=== PATIENT | female | born 1980 | race Caucasian/White ===

== ENCOUNTER 2018-12-04 20:06 | Emergency (ER) | payer OTHER ==
[~2018-12-04] VITALS: Ht 162.6 cm; Wt 100.0 kg
[~2018-12-04 20:06] MED LIST: CELE40TA PO; KLON0.5T PO; PERC7.5T12 PO; ULTR50TA PO; VALT1TAB PO
[2018-12-04] MEDS ORDERED: POTA10808 PO (20:10)
[2018-12-04] MEDS ORDERED: PROZ40CA PO (20:10)
[2018-12-04] MEDS ORDERED: LISI10TA2 PO (20:10)
[2018-12-04] MEDS ORDERED: BENA25CA4 PO (20:13)
[2018-12-04] MEDS ORDERED: dexameTHASONE 20 MG/5 ML VIAL (J1100) IV ONE (20:30)
[2018-12-04] MEDS ORDERED: diphenhydrAMINE INJ 50MG/ML VIAL (J1200) IV ONE (20:30)
[2018-12-04] MEDS ORDERED: FAMOTIDINE INJ 20MG/2ML VIAL (S0028) IVP ONE (20:30)
[2018-12-04] MEDS ORDERED: ALBUTEROL SULFATE 2.5 MG/0.5 ML INH NEB SOLN INH ONE (20:45)
[2018-12-04 21:09] LABS: BASO % 0.2 % (0.0-1.0); EOS # 0.1 10^3/uL (0.0-0.50); EOS % 0.8 % (0.0-3.0); HEMATOCRIT 42.1 % (36.0-47.0); HEMOGLOBIN 14.1 g/dl (12.0-15.5); LYMPH # 2.8 10^3/uL (1.5-4.5); LYMPH % 27.4 % (24.0-44.0); MEAN CORPUSCULAR HEMOGLOBIN 33.9 pg (27.0-33.0); MEAN CORPUSCULAR HGB CONC 33.5 g/dl (32.0-36.5); MEAN CORPUSCULAR VOLUME 101.2 fl (80.0-96.0); MONO # 0.4 10^3/uL (0.0-0.8); MONO % 4.2 % (0.0-5.0); NEUTROPHILS # 6.9 10^3/uL (1.8-7.7); NEUTROPHILS % 67.1 % (36.0-66.0); PLATELET COUNT, AUTOMATED 311 10^3/uL (150-450); RED BLOOD COUNT 4.16 10^6/uL (4.00-5.40); WHITE BLOOD COUNT 10.2 10^3/uL (4.0-10.0)
[2018-12-04 22:15] LABS: BLOOD UREA NITROGEN 16 MG/DL (7-18); CALCIUM LEVEL 8.9 MG/DL (8.5-10.1); CARBON DIOXIDE LEVEL 24 MEQ/L (21-32); CHLORIDE LEVEL 109 MEQ/L (98-107); CREATININE FOR GFR 0.82 MG/DL (0.55-1.30); GLOMERULAR FILTRATION RATE > 60.0 (>60); GLUCOSE, FASTING 97 MG/DL (70-100); POTASSIUM SERUM 4.3 MEQ/L (3.5-5.1); SODIUM LEVEL 142 MEQ/L (136-145)
[2018-12-04] MEDS ORDERED: EPINEPHrine INJ 1 MG/ML 1ML AMP IM STA (22:19)
[2018-12-04] MEDS ORDERED: NS 1,000 ML IV ONE (22:30)
[2018-12-05] MEDS ORDERED: diphenhydrAMINE INJ 50MG/ML VIAL (J1200) IV STA (00:23)
[2018-12-05] MEDS ORDERED: GABAPENTIN 300 MG CAP PO ONE (00:30)
[2018-12-05] MEDS ORDERED: PRED20TA PO (02:26)
[2018-12-05 02:36] VITALS: BP 145/89
--- NOTE | 2018-12-05 02:45 | REP ---
Clinical: Cough and dyspnea . Comparison: 05/29/2012 . Findings: The mediastinum and cardiac silhouette are stable and within normal limits for portable technique. The lung chiu are clear without acute consolidation, effusion, or pneumothorax. Skeletal structures are intact. Impression: No acute cardiopulmonary process appreciated. Electronically Signed by Tacos Vann MD 12/05/2018 02:37 A
[2018-12-06 14:40] LABS: ANTINUCLEAR ANTIBODIES DIRECT Negative (Negative)
== END 2018-12-05 02:45 | disposition home or self-care (01) ==
LOC: M ED 20:06
DX: L50.1 Idiopathic urticaria (principal); I10 Essential (primary) hypertension; F41.9 Anxiety disorder, unspecified; E28.2 Polycystic ovarian syndrome; F32.9 Major depressive disorder, single episode, unspecified; Z72.0 Tobacco use; Z79.899 Other long term (current) drug therapy; Z88.5 Allergy status to narcotic agent
CPT/HCPCS: 71045; 80048; 85025; 86038; 86140; 93041; 94640; 94760; 96361; 96372; 96374; 96375; 96376; 99285; J1100; J1200

== ENCOUNTER 2020-02-21 11:22 | Observation (INO) | payer OTHER ==
[~2020-02-21] VITALS: Ht 162.6 cm; Wt 104.8 kg
[~2020-02-21 11:22] MED LIST changes: +BENA25CA4 PO; +LISI10TA15 PO; +POTA10808 PO; +PRED20TA PO; +PROZ40CA PO
[2020-02-21] MEDS ORDERED: LOSA25TA14 PO (11:34)
[2020-02-21] MEDS ORDERED: AMPH1CAP16 PO (11:34)
[2020-02-21] MEDS ORDERED: ESTR1DIS TOP (11:34)
[2020-02-21] MEDS ORDERED: MORPHINE 4 MG/ML 1ML VIAL/SYRINGE (J2270) IV ONE (12:30)
[2020-02-21] MEDS ORDERED: ONDANSETRON 4MG/2ML VIAL IV ONE (12:30)
[2020-02-21] MEDS ORDERED: NS 1,000 ML IV ONE ×2 (12:30→15:30)
[2020-02-21 12:38] LABS: BASO % 0.4 % (0.0-1.0); EOS % 0.1 % (0.0-3.0); HEMATOCRIT 46.8 % (36.0-47.0); HEMOGLOBIN 15.6 g/dl (12.0-15.5); LYMPH # 1.8 10^3/uL (1.5-5.0); LYMPH % 16.3 % (24.0-44.0); MEAN CORPUSCULAR HEMOGLOBIN 33.1 pg (27.0-33.0); MEAN CORPUSCULAR HGB CONC 33.3 g/dl (32.0-36.5); MEAN CORPUSCULAR VOLUME 99.2 fl (80.0-96.0); MONO # 0.4 10^3/uL (0.0-0.8); MONO % 3.7 % (0.0-5.0); NEUTROPHILS # 8.9 10^3/uL (1.5-8.5); NEUTROPHILS % 79.1 % (36.0-66.0); PLATELET COUNT, AUTOMATED 328 10^3/uL (150-450); RED BLOOD COUNT 4.72 10^6/uL (4.00-5.40); WHITE BLOOD COUNT 11.3 10^3/uL (4.0-10.0)
[2020-02-21 12:41] LABS: INR 0.98; PROTHROMBIN TIME 13.2 SECONDS (11.8-14.0)
[2020-02-21 12:42] LABS: PARTIAL THROMBOPLASTIN TIME 28.1 SECONDS (25.0-38.4)
[2020-02-21 13:14] LABS: BLOOD UREA NITROGEN 11 MG/DL (7-18); CALCIUM LEVEL 9.5 MG/DL (8.5-10.1); CARBON DIOXIDE LEVEL 19 MEQ/L (21-32); CHLORIDE LEVEL 101 MEQ/L (98-107); CK-MB VALUE MASS 5.2 NG/ML (<3.6); CPK CREATINE PHOSPHOKINASE 188 U/L (26-192); CREATININE FOR GFR 0.78 MG/DL (0.55-1.30); GLOMERULAR FILTRATION RATE > 60.0 (>60); GLUCOSE, FASTING 64 MG/DL (70-100); MAGNESIUM LEVEL 1.7 MG/DL (1.8-2.4); MB/CK RELATIVE INDEX 2.77 (< OR =4); POTASSIUM SERUM 3.7 MEQ/L (3.5-5.1); SODIUM LEVEL 135 MEQ/L (136-145); THYROID STIMULATING HORMONE 0.204 uIU/ML (0.358-3.740); TROPONIN I < 0.02 NG/ML (< 0.10)
[2020-02-21] MEDS ORDERED: ISOVUE-370 76% 100ML VIAL As Ordered ONE (13:28)
[2020-02-21] MEDS ORDERED: KETOROLAC 30 MG/ML 1ML VIAL IV ONE (15:30)
[2020-02-21] MEDS ORDERED: DICYCLOMINE INJ 20MG/2ML (J0500) IM ONE (15:30)
[2020-02-21] MEDS ORDERED: METOCLOPRAMIDE INJ 10MG/2ML VIAL (J2765 PER 1) IV ONE (17:30)
[2020-02-21] MEDS ORDERED: CLON0.5T2 PO (18:31)
--- NOTE | 2020-02-21 20:14 | HPEPDOC ---
[facility] Medical History & Physical Date of Admission Feb 21, 2020 Date of Service: Feb 21, 2020 Attending Physician: DEBBI NAVARRO MD History and Physical CHIEF COMPLAINT: Syncope HISTORY OF PRESENT ILLNESS: 39 yo F with a hx of HTN, anxiety, ADHD, presented to the ED after an episode of syncope this morning, after vomiting. She states that she collapsed for ~30 seconds, and was woken up by her who lifted her legs above her heart. She denies having chest pain, palpitation, SOB. She denies a hx of seizures or diabetes. Follows keto diet, eats 1300 cals per day. Did not eat much night before. Was camping, had some hot dogs. She also reports LUQ abdominal pain, onset after vomitus. Improved after toradol in the ED. Denies blood in vomit or blood in stool. She also describes prior cardiac workup 2 years ago at an OSH, due to a hx of palpitations. She reports having a 24 hour holter monitor but no echocardiogram. She does not endorse palpitations prior to the ED visit. In the ED, patient was not hypotensive. Afebrile. Mild WBC elevation. BG wnl. EKG NSR. Mildly tachycardic. CTA/PE showed no PE. CT abdomen unremarkable. Received 2L NS bolus. PAST MEDICAL HISTORY: 1. HTN. 2. anxiety. 3. ADHD. PAST SURGICAL HISTORY: 1. lap band, and removal 2. hysteroctomy. SOCIAL HISTORY: former smoker, quit 2 years ago occasional etoh use FAMILY HISTORY: no cardiac hx in first deg relatives. grandmother sudden due to arrhythmia ALLERGIES: Please see below. REVIEW OF SYSTEMS: CONSTITUTIONAL: na HEENT: na. CARDIOVASCULAR: denies palpitations, denies CP, . RESPIRATORY: none. GASTROINTESTINAL: LUQ abdominal pain, sharp on presentation, dull after toradol. GENITOURINARY: na. SKIN: na. MUSCULOSKELETAL: na. NEUROLOGICAL: na. PSYCHIATRIC: na. ENDOCRINE: na. HEMATOLOGIC/LYMPHATIC: na. HOME MEDICATIONS: Please see below. PHYSICAL EXAMINATION: VITAL SIGNS: please see below GENERAL APPEARANCE: NAD. HEENT: PERRLA. CARDIOVASCULAR: RRR, normal S1, S2. LUNGS: CTAB. ABDOMEN: sharp pain to palpation in the LUQ. No masses palpated. BS+. MUSCULOSKELETAL: no joint deformity. EXTREMITIES: no edema. NEUROLOGICAL: no focal neuro deficits, AAO x 3. PSYCHIATRIC: calm, cooperaive. LABORATORY DATA: See below. IMAGING: CTAPE - no PE identified. CT Abdo no acute findings. MICROBIOLOGY: Please see below. ASSESSMENT: 39 yo F with a hx of HTN, anxiety, ADHD, admitted for observation for an episode of syncope, and ongoing LUQ following an episode of vomiting this morning. PLAN: 1. Syncope: likely 2/2 reduced PO intake. CBC, CMP. S/p 2L NS bolus. C/w NS 125 cc/hr. EKG NSR. Negative orthostats. Check echo given hx of palpitations. PT eval. 2. LUQ pain: likely 2/2 gastritis. Bentyl. PPI. GI cocktail. Check lipase, amylase. 3. HTN: home dose losartan 25 mg po. Hold for now. 4. anxiety: klonopin 0.5 mg daily prn - has not taken for 2 weeks, hold given episode of syncope Dispo: DC home once medically stable. Vital Signs Vital Signs Date Time Temp Pulse Resp B/P (MAP) Pulse Ox O2 Delivery O2 Flow Rate FiO2 02/21/20 18:00 66 18 130/66 (87) 98 Room Air 02/21/20 11:23 98.7 Laboratory Data Labs 24H Laboratory Tests 2 02/21/20 11:35: Immature Granulocyte % (Auto) 0.4, Neutrophils (%) (Auto) 79.1H, Lymphocytes (%) (Auto) 16.3L, Monocytes (%) (Auto) 3.7, Eosinophils (%) (Auto) 0.1, Basophils (%) (Auto) 0.4, Neutrophils # (Auto) 8.9H, Lymphocytes # (Auto) 1.8, Monocytes # (Auto) 0.4, Eosinophils # (Auto) 0.0, Basophils # (Auto) 0.0, Nucleated Red Blood Cells % (auto) 0.0, Prothrombin Time 13.2, Prothromb Time International Ratio 0.98, Activated Partial Thromboplast Time 28.1, Anion Gap 15, Glomerular Filtration Rate > 60.0, Calcium Level 9.5, Magnesium Level 1.7L, Total Creatine Kinase 188, Creatine Kinase MB 5.2H, Creatine Kinase MB Relative Index 2.77, Troponin I < 0.02, Thyroid Stimulating Hormone (TSH) 0.204L CBC/BMP Laboratory Tests 02/21/20 11:35 Home Medications Scheduled Dextroamphetamine/Amphetamine (Dextroamp-Amphet ER 20 mg Cap) 20 Mg Cap.er.24h, 20 MG PO DAILY Estradiol (Estradiol) 0.1 Mg/24 Hr Patch.tdsw, 1 PATCH TOP 2XW APPLY TO ARM ON SAT, Losartan Potassium (Losartan Potassium) 25 Mg Tablet, 25 MG PO DAILY Scheduled PRN Clonazepam (Clonazepam) 0.5 Mg Tablet, 0.5 MG PO DAILY PRN for ANXIETY Allergies Coded Allergies: codeine (Verified Allergy, Severe, SOB AND CHEST PAIN, 12/04/18) A-FIB/CHADSVASC A-FIB History Current/History of A-Fib/PAF?: No Current PO Anticoag Therapy: No DEBBI NAVARRO MD Feb 21, 2020 20:14
[2020-02-21] MEDS ORDERED: ACETAMINOPHEN TAB 650MG DOSE (2X325MG) PO PRN (20:15)
[2020-02-21] MEDS: MAG SULF 1GM/100ML (MAG RUN) 1 GM in IV 1 EA IV SCH ×2 (21:19→21:30)
[2020-02-21] MEDS: NS 1,000 ML IV SCH (21:20)
[2020-02-21 22:30] VITALS: BP 137/67
[2020-02-21] MEDS: DOCUSATE SODIUM 100 MG CAP PO SCH (23:03)
[2020-02-22 06:00] VITALS: BP 120/59
[2020-02-22 07:29] LABS: BASO % 0.5 % (0.0-1.0); EOS # 0.1 10^3/uL (0.0-0.5); EOS % 1.9 % (0.0-3.0); HEMATOCRIT 43.4 % (36.0-47.0); LYMPH # 1.8 10^3/uL (1.5-5.0); LYMPH % 24.5 % (24.0-44.0); MEAN CORPUSCULAR HEMOGLOBIN 32.1 pg (27.0-33.0); MEAN CORPUSCULAR HGB CONC 32.3 g/dl (32.0-36.5); MEAN CORPUSCULAR VOLUME 99.5 fl (80.0-96.0); MONO # 0.6 10^3/uL (0.0-0.8); MONO % 8.6 % (0.0-5.0); NEUTROPHILS # 4.8 10^3/uL (1.5-8.5); NEUTROPHILS % 64.2 % (36.0-66.0); PLATELET COUNT, AUTOMATED 272 10^3/uL (150-450); RED BLOOD COUNT 4.36 10^6/uL (4.00-5.40); WHITE BLOOD COUNT 7.4 10^3/uL (4.0-10.0)
[2020-02-22 07:56] LABS: ALBUMIN 3.7 GM/DL (3.2-5.2); ALT/SGPT 58 U/L (12-78); AMYLASE 27 U/L (25-115); BILIRUBIN,TOTAL 0.6 MG/DL (0.2-1.0); BLOOD UREA NITROGEN 9 MG/DL (7-18); CALCIUM LEVEL 8.6 MG/DL (8.5-10.1); CARBON DIOXIDE LEVEL 19 MEQ/L (21-32); CHLORIDE LEVEL 110 MEQ/L (98-107); CREATININE FOR GFR 0.64 MG/DL (0.55-1.30); GLOMERULAR FILTRATION RATE > 60.0 (>60); GLUCOSE, FASTING 76 MG/DL (70-100); LIPASE 111 U/L (73-393); MAGNESIUM LEVEL 2.2 MG/DL (1.8-2.4); POTASSIUM SERUM 4.1 MEQ/L (3.5-5.1); SODIUM LEVEL 138 MEQ/L (136-145); TOTAL PROTEIN 6.4 GM/DL (6.4-8.2)
[2020-02-22] MEDS: DOCUSATE SODIUM 100 MG CAP PO SCH (08:41)
[2020-02-22] MEDS ORDERED: METOCLOPRAMIDE INJ 10MG/2ML VIAL (J2765 PER 1) IV PRN (09:00)
[2020-02-22] MEDS ORDERED: ENOXAPARIN 40MG/0.4ML SYRINGE (J1650 PER 10MG) SC SCH (09:00)
[2020-02-22] MEDS: NS 1,000 ML IV SCH (09:55)
[2020-02-22 11:15] VITALS: BP 145/86
[2020-02-22 11:18] VITALS: BP 130/85
[2020-02-22 11:21] VITALS: BP 162/100
--- NOTE | 2020-02-22 14:36 | DS.PDOC ---
Discharge Summary General Date of Admission Feb 21, 2020 at 11:23 Date of Discharge 02/22/20 Primary Care Physician: A Discharge Summary CHIEF COMPLAINT: Syncope Final Diagnosis : Syncope HISTORY OF PRESENT ILLNESS: 39 yo F with a hx of HTN, anxiety, ADHD, presented to the ED after an episode of syncope this morning, after vomiting. She states that she collapsed for ~30 seconds, and was woken up by her who lifted her legs above her heart. She denies having chest pain, palpitation, SOB. She denies a hx of seizures or diabetes. Follows keto diet, eats 1300 cals per day. Did not eat much night before. Was camping, had some hot dogs. She also reports LUQ abdominal pain, onset after vomitus. Improved after toradol in the ED. Denies blood in vomit or blood in stool. Her abd pain has completely resolved and she tolerated diet as well. CTA abd pelvis was doen which loks normal to me but no official read omid. Orthostatic signs were done which were negative . Tele/EKG no over night events . She also describes prior cardiac workup 2 years ago at an OSH, due to a hx of palpitations. She reports having a 24 hour holter monitor which was normal as per her but no echocardiogram. CTA/PE showed no PE. CT abdomen unremarkable. She needs an outpatinet cardiac work up, including ECHO , event monitor if she has more similar epsodes. She wants to go home is medically cleared for DC. GENERAL APPEARANCE: NAD. HEENT: PERRLA. CARDIOVASCULAR: RRR, normal S1, S2. LUNGS: CTAB. ABDOMEN: sharp pain to palpation in the LUQ. No masses palpated. BS+. MUSCULOSKELETAL: no joint deformity. EXTREMITIES: no edema. NEUROLOGICAL: no focal neuro deficits, AAO x 3. PSYCHIATRIC: calm, cooperaive. LABORATORY DATA: See below. IMAGING: CTAPE - no PE identified. CT Abdo no acute findings. Medications on DC: All meds have been continued F/U appiontments : F/u with PCP in 1 week and she will require cardio referral from the PCP Diet: Regular Condition on discharge : Medically optimized for DC Discharge Disposition : Home Total time spend on this discharge including coordination of care, review of chart , documentation and actual patient contact is 30 minutes. Vital Signs/I&Os Vital Signs Date Time Temp Pulse Resp B/P (MAP) Pulse Ox O2 Delivery O2 Flow Rate FiO2 02/22/20 11:21 74 162/100 (120) 02/22/20 06:00 98.0 18 98 Room Air I&O- Last 24 Hours up to 6 AM 02/22/20 06:00 Intake Total 4580 ml Output Total 1200 ml Balance 3380 ml Laboratory Data Labs 24H Laboratory Tests 2 02/22/20 07:05: Immature Granulocyte % (Auto) 0.3, Neutrophils (%) (Auto) 64.2, Lymphocytes (%) (Auto) 24.5, Monocytes (%) (Auto) 8.6H, Eosinophils (%) (Auto) 1.9, Basophils (%) (Auto) 0.5, Neutrophils # (Auto) 4.8, Lymphocytes # (Auto) 1.8, Monocytes # (Auto) 0.6, Eosinophils # (Auto) 0.1, Basophils # (Auto) 0.0, Nucleated Red Blood Cells % (auto) 0.0, Anion Gap 9, Glomerular Filtration Rate > 60.0, Calcium Level 8.6, Magnesium Level 2.2, Total Bilirubin 0.6, Aspartate Amino Transf (AST/SGOT) 58H, Alanine Aminotransferase (ALT/SGPT) 58, Alkaline Phosphatase 71, Total Protein 6.4, Albumin 3.7, Albumin/Globulin Ratio 1.4, Amylase Level 27, Lipase 111 CBC/BMP Laboratory Tests 02/22/20 07:05 Discharge Medications Scheduled Dextroamphetamine/Amphetamine (Dextroamp-Amphet ER 20 mg Cap) 20 Mg Cap.er.24h, 20 MG PO DAILY, (Reported) Estradiol (Estradiol) 0.1 Mg/24 Hr Patch.tdsw, 1 PATCH TOP 2XW, (Reported) APPLY TO ARM ON SAT, Losartan Potassium (Losartan Potassium) 25 Mg Tablet, 25 MG PO DAILY, (Reported) Scheduled PRN Clonazepam (Clonazepam) 0.5 Mg Tablet, 0.5 MG PO DAILY PRN for ANXIETY, (Reported) Allergies Coded Allergies: codeine (Verified Allergy, Severe, SOB AND CHEST PAIN, 12/04/18) BLADIMIR VAZQUEZ MD Feb 22, 2020 14:36
--- NOTE | 2020-03-09 12:52 | ECGEPIP ---
[facility] - ED Test Date: 2020-02-21 Pat Name: ALFREDA PIERRE Department: Room: - Gender: Female Slat Twister: : 1980 Requested By: MARCIO GAONA Order Number: [id number] Reading MD: Benja Agudelo Measurements Intervals [place] Rate: 79 P: 62 DE: 169 QRS: 28 QRSD: 92 T: 54 QT: 364 QTc: 418 Interpretive Statements SINUS RHYTHM EARLY REPOLARIZATION SEE SCANNED DOWNTIME REPORT
--- NOTE | 2020-03-25 14:45 | REP ---
CT ABDOMEN AND PELVIS WITH IV CONTRAST HISTORY: Syncope. Severe left upper quadrant pain. CT CONTRAST DOSE: 100 mL of intravenous Isovue-370. CT FINDINGS: Digital preliminary generator mechanic radiograph non-contributory report. There are clips in the right upper quadrant post cholecystectomy. There is moderate diffuse fatty infiltration of the liver. No focal liver lesion is appreciated. The spleen is homogeneous in texture and normal in size. No abnormality is noted in the pancreas. Normal adrenal glands are observed bilaterally. The kidneys enhance symmetrically and appear morphologically intact. There is some mild cortical scarring and thinning in the lower pole of the left kidney. A 4-mm intrarenal calculus is seen in the lower pole of the left kidney. Normal caliber aorta. No retroperitoneal mass or adenopathy is seen. Normal appendix is seen in the right lower quadrant. Small and large intestinal bowel loops are unremarkable. The uterus is surgically absent. MTDD
--- NOTE | 2020-03-25 14:46 | REP ---
CT PULMONARY ANGIOGRAM WITH INTRAVENOUS (IV) CONTRAST HISTORY: Syncope, shortness of breath, rule out pulmonary embolus. CT CONTRAST DOSE: 100 mL of intravenous Isovue-370. CT FINDINGS: Digital preliminary fish checker view of the chest is unremarkable. There is good opacification in the pulmonary arterial tree. There is no filling defect or vessel cutoff seen to suggest pulmonary embolus. Thoracic aorta enhances normally and is normal in caliber and course. No dissection or aneurysm is seen. No pleural or pericardial effusion is observed. There is moderate diffuse fatty infiltration of the liver. No adrenal abnormality is observed. The visualized upper abdominal structures are otherwise unremarkable. No hilar or mediastinal mass or adenopathy is seen. The lung chiu are free of infiltrate. No pulmonary mass or significant pulmonary nodule is appreciated. Bone window settings show no bony destructive lesion. IMPRESSION: Moderate diffuse fatty infiltration of the liver. No CT evidence of pulmonary embolus. Otherwise negative. MTDD
--- NOTE | 2020-04-08 14:59 | ECHO ---
DATE OF PROCEDURE: 02/02/2020 Age: 39 Gender: Female Height: 160 cm Weight: 105 kg REFERRING PHYSICIAN: Yogesh Montejo MD INDICATION: Syncope. MEASUREMENTS: 2D Measurements: Interventricular septum 0.71 cm Posterior wall 0.76 cm Left ventricle diastole 4.6 cm Left atrium 3.7 cm Aortic root 3.2 cm Aortic annulus 2.3 cm Proximal ascending aorta 2.8 cm Inferior vena cava 1.2 cm with normal respiratory variation Doppler Measurements: Trace aortic regurgitation No aortic stenosis Aortic valve velocity 129 cm/s LVOT velocity 93.3 cm/s LVOT VTI 23.1 cm Trace mitral regurgitation Mitral E velocity 109 cm/s Mitral A velocity 65.1 cm/s Mitral deceleration time 134 msec Trace tricuspid regurgitation No pulmonic regurgitation MITRAL ANNULAR TISSUE DOPPLER E prime septal 8.8 cm/s, E prime lateral 13.3 cm/s DESCRIPTION: Rhythm was sinus rhythm and sinus bradycardia. Image quality was good. No pericardial effusion. This was a 2D, M-mode, color flow Doppler, and pulsed wave Doppler examination including mitral annular tissue Doppler. CONCLUSIONS: * Very mild focal thickening along the free margins of the 3-cuspid aortic valve. Trace aortic regurgitation. * Normal left ventricle internal dimensions and wall thickness. Normal regional LV wall motion and wall thickening. Normal LV systolic function. LVEF of 65% by visual estimate. Normal LV diastolic function. * Otherwise normal echocardiogram Doppler findings. MTDD
== END 2020-02-22 15:30 | disposition home or self-care (01) ==
LOC: M ED 11:22 → M ED INP 11:23 → ENRESERV 21:11 → M MS5PR 22:58
PROVIDERS: ADMIT Family Medicine; ATTEND Internal Medicine
DX: R55 Syncope and collapse (principal); I10 Essential (primary) hypertension; F90.9 Attention-deficit hyperactivity disorder, unspecified type; F41.9 Anxiety disorder, unspecified; Z79.899 Other long term (current) drug therapy; R10.32 Left lower quadrant pain; Z88.5 Allergy status to narcotic agent; Z87.891 Personal history of nicotine dependence
CPT/HCPCS: 36415; 71275; 74177; 80048; 80053; 82150; 82550; 82553; 83690; 83735; 84443; 84484; 85025; 85610; 85730; 93005; 93041; 93306; 94760; 96361; 96372; 96374; 96375; 96376; 99285; J0500; J1650; J1885; J2270; J2405; J2765; J3475; Q9967

== ENCOUNTER 2020-06-26 02:49 | Emergency (ER) | payer OTHER ==
[~2020-06-26] VITALS: Ht 160 cm; Wt 104.5 kg
[~2020-06-26 02:49] MED LIST changes: +AMPH1CAP16 PO; +CLON0.5T2 PO; +ESTR1DIS TOP; +LOSA25TA14 PO
[2020-06-26] MEDS ORDERED: ONDANSETRON 4MG/2ML VIAL IV ONE (03:30)
[2020-06-26] MEDS ORDERED: KETOROLAC 30 MG/ML 1ML VIAL IV ONE (03:30)
[2020-06-26] MEDS ORDERED: NS 1,000 ML IV ONE (03:30)
[2020-06-26 04:00] LABS: BASO % 0.5 % (0.0-1.0); EOS # 0.3 10^3/uL (0.0-0.5); EOS % 3.6 % (0.0-3.0); HEMATOCRIT 39.9 % (36.0-47.0); HEMOGLOBIN 12.9 g/dl (12.0-15.5); LYMPH # 3.9 10^3/uL (1.5-5.0); LYMPH % 49.2 % (24.0-44.0); MEAN CORPUSCULAR HEMOGLOBIN 31.4 pg (27.0-33.0); MEAN CORPUSCULAR HGB CONC 32.3 g/dl (32.0-36.5); MEAN CORPUSCULAR VOLUME 97.1 fl (80.0-96.0); MONO # 0.4 10^3/uL (0.0-0.8); MONO % 5.5 % (0.0-5.0); NEUTROPHILS # 3.3 10^3/uL (1.5-8.5); NEUTROPHILS % 40.9 % (36.0-66.0); PLATELET COUNT, AUTOMATED 297 10^3/uL (150-450); RED BLOOD COUNT 4.11 10^6/uL (4.00-5.40)
[2020-06-26 04:28] LABS: HCG, SERUM QUALITATIVE NEGATIVE (NEGATIVE)
[2020-06-26 04:29] LABS: ALBUMIN 3.2 GM/DL (3.2-5.2); ALT/SGPT 23 U/L (12-78); BILIRUBIN,DIRECT < 0.1 MG/DL (0.0-0.2); BILIRUBIN,TOTAL 0.2 MG/DL (0.2-1.0); BLOOD UREA NITROGEN 11 MG/DL (7-18); CALCIUM LEVEL 8.3 MG/DL (8.5-10.1); CARBON DIOXIDE LEVEL 28 MEQ/L (21-32); CHLORIDE LEVEL 108 MEQ/L (98-107); CREATININE FOR GFR 0.76 MG/DL (0.55-1.30); GLOMERULAR FILTRATION RATE > 60.0 (>60); GLUCOSE, FASTING 79 MG/DL (70-100); LIPASE 212 U/L (73-393); POTASSIUM SERUM 4.5 MEQ/L (3.5-5.1); SODIUM LEVEL 142 MEQ/L (136-145); TOTAL PROTEIN 6.1 GM/DL (6.4-8.2)
[2020-06-26] MEDS ORDERED: ISOVUE-370 76% 100ML VIAL As Ordered ONE (04:39)
[2020-06-26] MEDS: MORPHINE 4 MG/ML 1ML VIAL/SYRINGE (J2270) IV PRN ×2 (04:49→05:23)
[2020-06-26] MEDS ORDERED: METAL LOCK LOOP XX ONE (06:23)
--- NOTE | 2020-06-26 06:24 | REPVR ---
PROCEDURE INFORMATION: Exam: CT Abdomen And Pelvis With Contrast Exam date and time: 06/26/2020 5:35 AM Age: 40 years old Clinical indication: Abdominal pain; Localized; Right; Additional info: Right sided abd TECHNIQUE: Imaging protocol: Computed tomography of the abdomen and pelvis with intravenous contrast. Radiation optimization: All CT scans at this facility use at least one of these dose optimization techniques: automated exposure control; mA and/or kV adjustment per patient size (includes targeted exams where dose is matched to clinical indication); or iterative reconstruction. Contrast material: ISOVUE 370; Contrast volume: 100 ml; Contrast route: INTRAVENOUS (IV); COMPARISON: CT ABD PELVIS WITH CONTRAST 02/21/2020 1:48 PM FINDINGS: Lungs: Linear atelectasis or scarring in the lingula. Liver: Hepatomegaly and steatosis. Gallbladder and bile ducts: Status post cholecystectomy. Pancreas: Normal. No ductal dilation. Spleen: Normal. No splenomegaly. Adrenal glands: Normal. No mass. Kidneys and ureters: Punctate nonobstructing left renal calculus. No hydronephrosis. Focal scarring in the inferior pole the left kidney. Stomach and bowel: Status post partial gastrectomy. Appendix: No evidence of appendicitis. Intraperitoneal space: Unremarkable. No free air. No significant fluid collection. Vasculature: Unremarkable. No abdominal aortic aneurysm. Lymph nodes: Unremarkable. No enlarged lymph nodes. Urinary bladder: Distended urinary bladder. Reproductive: Status post hysterectomy. Bones/joints: Multilevel degenerative disease and facet hypertrophy of the lumbar spine. Soft tissues: Small fat containing umbilical hernia. IMPRESSION: Punctate nonobstructing left renal calculus. No hydronephrosis. Hepatomegaly and steatosis. No bowel obstruction. Normal appendix. Electronically signed by: Marcos Canada On 06/26/2020 06:24:53 AM
[2020-06-26 06:30] VITALS: BP 118/69
[2020-06-26] MEDS ORDERED: PERC5TAB12 PO (06:41)
== END 2020-06-26 07:09 | disposition home or self-care (01) ==
LOC: M ED 02:49
DX: R10.9 Unspecified abdominal pain (principal); F41.1 Generalized anxiety disorder; Z87.442 Personal history of urinary calculi; Z79.899 Other long term (current) drug therapy; Z88.5 Allergy status to narcotic agent
CPT/HCPCS: 36415; 74177; 80048; 80076; 81001; 83605; 83690; 84703; 85025; 93041; 96361; 96374; 96375; 96376; 99284; J1885; J2270; J2405; Q9967; U0003

== ENCOUNTER 2020-12-22 07:10 | Observation (INO) | payer OTHER ==
[~2020-12-22] VITALS: Ht 162.6 cm; Wt 110.2 kg
[~2020-12-22 07:10] MED LIST changes: +PERC5TAB12 PO
[2020-12-22] MEDS ORDERED: FLUO40CA PO (07:21)
[2020-12-22] MEDS ORDERED: VALA1TAB5 PO (07:21)
[2020-12-22] MEDS ORDERED: SUMA50TA2 PO (07:21)
[2020-12-22] MEDS ORDERED: CLON0.5T2 PO (07:21)
[2020-12-22 08:14] LABS: BASO % 0.2 % (0.0-1.0); EOS % 0.4 % (0.0-3.0); HEMATOCRIT 42.7 % (36.0-47.0); HEMOGLOBIN 13.9 g/dl (12.0-15.5); LYMPH # 1.3 10^3/uL (1.5-5.0); LYMPH % 14.3 % (24.0-44.0); MEAN CORPUSCULAR HEMOGLOBIN 32.6 pg (27.0-33.0); MEAN CORPUSCULAR HGB CONC 32.6 g/dl (32.0-36.5); MEAN CORPUSCULAR VOLUME 100.2 fl (80.0-96.0); MONO # 0.4 10^3/uL (0.0-0.8); MONO % 3.9 % (2.0-8.0); NEUTROPHILS # 7.4 10^3/uL (1.5-8.5); NEUTROPHILS % 80.9 % (36.0-66.0); PLATELET COUNT, AUTOMATED 323 10^3/uL (150-450); RED BLOOD COUNT 4.26 10^6/uL (4.00-5.40); WHITE BLOOD COUNT 9.1 10^3/uL (4.0-10.0)
[2020-12-22] MEDS ORDERED: KETOROLAC 30 MG/ML 1ML VIAL IV ONE (08:15)
[2020-12-22 08:20] LABS: BLOOD UREA NITROGEN 12 MG/DL (7-18); CALCIUM LEVEL 9.1 MG/DL (8.5-10.1); CARBON DIOXIDE LEVEL 26 MEQ/L (21-32); CHLORIDE LEVEL 106 MEQ/L (98-107); CPK CREATINE PHOSPHOKINASE 102 U/L (26-192); CREATININE FOR GFR 0.64 MG/DL (0.55-1.30); GLOMERULAR FILTRATION RATE > 60.0 (>60); GLUCOSE, FASTING 109 MG/DL (70-100); POTASSIUM SERUM 4.1 MEQ/L (3.5-5.1); SODIUM LEVEL 138 MEQ/L (136-145)
--- NOTE | 2020-12-22 08:22 | ECGEPIP ---
[facility] - ED Test Date: 2020-12-22 Pat Name: ALFREDA PIERRE Department: Room: - Gender: Female Senior Medical Transcriptionist: gracie : 1980 Requested By: Benja Chandler Order Number: [id number] Reading MD: Benja Agudelo Measurements Intervals [place] Rate: 61 P: 32 GA: 184 QRS: -6 QRSD: 80 T: 6 QT: 388 QTc: 390 Interpretive Statements Normal sinus rhythm Minimal voltage criteria for LVH, may be normal variant ( R in aVL ) BENIGN EARLY REPOLARIZATION SIMILAR TO 02/21/20 Electronically Signed on 12-22-2020 8:21:35 EDT by Benja Agudelo
--- NOTE | 2020-12-22 08:30 | REP ---
INDICATION: seizure. COMPARISON: None. TECHNIQUE: Helical scanning is acquired. 5 mm axial images were reformatted. Coronal MPR images were generated. FINDINGS: Bone window settings demonstrate an intact bony calvarium. There is no evidence of skull fracture or incidental bony calvarial lesion. The visualized paranasal sinuses appear clear. No intraorbital abnormality is seen. On soft tissue window setting images; the lateral, third, and fourth ventricles are normal in size and position. Gonzalez-white differentiation pattern is normal above and below the tentorium. There are is no evidence of intracranial hemorrhage. No mass, edema, infarction, or midline shift is seen. No extra-axial fluid collection is appreciated. IMPRESSION: Negative noncontrast head CT. <Electronically signed by Rafa Boudreaux > 12/22/20 0033
[2020-12-22] MEDS ORDERED: ZONISAMIDE 50 MG CAP (ZONEGRAN) PO ONE (09:25)
[2020-12-22 09:51] LABS: PROLACTIN 5.7 NG/ML
[2020-12-22] MEDS ORDERED: METOCLOPRAMIDE INJ 10MG/2ML VIAL (J2765 PER 1) IV ONE (10:35)
[2020-12-22] MEDS ORDERED: LORazepam 2 MG/ML VIAL IV STA (11:54)
[2020-12-22] MEDS ORDERED: ZONISAMIDE 100 MG CAP (ZONEGRAN) PO ONE (11:55)
[2020-12-22] MEDS ORDERED: AMPH1CAP15 PO (12:33)
[2020-12-22 13:00] LABS: RSV AMPLIFICATION NEGATIVE (NEGATIVE)
[2020-12-22] MEDS ORDERED: LORazepam 2 MG/ML VIAL IV PRN (13:05)
[2020-12-22] MEDS ORDERED: FIORICET TAB PO PRN (13:05)
[2020-12-22 16:40] VITALS: BP 100/58
[2020-12-22] MEDS: DIVALPROEX 500 MG TAB PO SCH (18:14)
--- NOTE | 2020-12-22 18:26 | HPEPDOC ---
General Date of Admission 12/22/20 Date of Service: Dec 22, 2020 Chief Complaint The patient is a 40-year-old female admitted with a reason for visit of Probable Seizure. Source: Patient, RN/MD History of Present Illness 40-year-old female with history of migraine, anxiety, syncope worked up by cardiology in the past, morbid obesity status post lap band placement and remova l, ADHD presented to the emergency room with 2 episodes of presumed seizures at home. At 4:30 AM was woken up by thrashing movement of the patient in bed there were some frothing in the mouth lasted for about 30 seconds then she had a staring look for a few seconds then was back to normal they went back to sleep. He was again woken up at around 5:15 AM with similar thrashing movement lasted again for 30 seconds. There was no urinary incontinence. Her tongue was protruding out but there was no tongue biting. In the morning she presented to the emergency room with a severe headache which she said was her similar to her migraine attack. She had throbbing headache all over the head 8/10 in intensity. No photophobia or phonophobia no nausea or vomiting. She had a CT scan in the head in the ED which was negative for any acute events she also had an MRI within the past 1 month through her primary care at [place] [facility] which was also negative for any acute findings. While in the ED she had 2 more episodes of jerky movements of hands and legs with some frothing but was able to manage her secretions and there was no drop in oxygen saturation, no rise in pulse rate. The episodes lasted about 30 to 40 seconds without any post external state. there was no tongue biting. There was some minimal urinary incontinence during the fourth episode. ED provider consulted Dr. Sethi from neurology and as per his recommendations she was given zonisamide and was admitted to get evaluated for seizures. On my exam she was sedated she had received Ativan in the ED. all history was taken from ED provider and from chart review. Home Medications Scheduled Dextroamphetamine/Amphetamine (Dextroamp-Amphet ER 15 mg Cap) 15 Mg Cap.er.24h, 15 MG PO BID, (Reported) TAKES AM/NOON Estradiol (Estradiol) 0.1 Mg/24 Hr Patch.tdsw, 1 PATCH TOP 2XW, (Reported) APPLY TO ARM ON SAT, THURS Fluoxetine Hcl (Fluoxetine HCl) 40 Mg Capsule, 40 MG PO DAILY, (Reported) Scheduled PRN Clonazepam (Clonazepam) 0.5 Mg Tablet, 1 TAB PO DAILY PRN for ANXIETY/AGITATION, (Reported) Sumatriptan Succinate (Sumatriptan Succinate) 50 Mg Tablet, 50 MG PO ASDIRECTED PRN for HEADACHE, (Reported) Valacyclovir HCl (Valacyclovir) 1,000 Mg Tablet, 2,000 MG PO BID PRN for COLD SORES, (Reported) Allergies Coded Allergies: codeine (Verified Allergy, Severe, SOB AND CHEST PAIN, 12/04/18) Past Medical History Medical History Morbid obesity BMI of 43.1 Hypertension Anxiety ADHD Migraine HSV infection. Surgical History lap band, and removal hysterectomy. Family History Grandmother sudden due to arrhythmia Social History * Smoker: former Smoker Alcohol: occationally Drugs: denies A-FIB/CHADSVASC A-FIB History Current/History of A-Fib/PAF?: No Review of Systems Constitutional: Denies: Chills, Fever, Night Sweats ENT: Reports: Head Aches Skin: Denies: Rash, Lesions, Breakdown Pulmonary: Denies: Dyspnea, Cough Cardiovascular: Denies: Chest Pain, Palpitations, Orthopnea, Paroxysmal Noc. Dyspnea, Lt Headedness Gastrointestinal: Denies: Nausea, Vomiting, Abdominal Pain, Diarrhea Genitourinary: Reports: Retention; Denies: Dysuria, Frequency, Incontinence Hematologic: Denies: Bruising, Bleeding Excessively Physical Examination General Exam: Positive: Alert, Cooperative, No Acute Distress Eye Exam: Positive: PERRLA, Conjunctiva & lids normal; Negative: Sclera icteric ENT Exam: Positive: Atraumatic, Mucous membr. moist/pink, Pharynx Normal Neck Exam: Positive: Supple; Negative: JVD, thyromegaly Chest Exam: Positive: Clear to auscultation, Normal air movement Heart Exam: Positive: Rate Normal, Regular Rhythm, Normal S1, Normal S2; Negative: Murmurs, Rubs Abdomen Exam: Positive: Normal bowel sounds, Soft; Negative: Tenderness Extremity Exam: Negative: Clubbing, Cyanosis, Edema Vital Signs Vital Signs Date Time Temp Pulse Resp B/P (MAP) Pulse Ox O2 Delivery O2 Flow Rate FiO2 12/22/20 11:53 74 96 12/22/20 11:30 148/82 (104) 12/22/20 09:46 Room Air 12/22/20 09:16 18 12/22/20 07:10 97.5 Laboratory Data Labs 24H Laboratory Tests 2 12/22/20 07:42: Immature Granulocyte % (Auto) 0.3, Neutrophils (%) (Auto) 80.9H, Lymphocytes (%) (Auto) 14.3L, Monocytes (%) (Auto) 3.9, Eosinophils (%) (Auto) 0.4, Basophils (%) (Auto) 0.2, Neutrophils # (Auto) 7.4, Lymphocytes # (Auto) 1.3L, Monocytes # (Auto) 0.4, Eosinophils # (Auto) 0.0, Basophils # (Auto) 0.0, Nucleated Red Blood Cells % (auto) 0.0, Anion Gap 6L, Glomerular Filtration Rate > 60.0, Calcium Level 9.1, Total Creatine Kinase 102, Prolactin 5.7 12/22/20 07:46: POC Glucose (Misc Panel) 113H, POC Sodium (Misc Panel) 139, POC Potassium (Misc Panel) 4.1, POC Chloride (Misc Panel) 102, POC Total CO2 (Misc Panel) 23.0, POC Blood Urea Nitrogen (Misc Panel 12, POC Ionized Calcium (Misc Panel) 5.0, POC Creatinine (Misc Panel) 0.6, POC Hematocrit (Misc Panel) 45.0 CBC/BMP Laboratory Tests 12/22/20 07:42 Assessment/Plan 40-year-old female with history of migraine, anxiety, syncope worked up by cardiology in the past, morbid obesity status post lap band placement and removal, ADHD presented to the emergency room with 2 episodes of presumed seizures at home followed by severe headache which was like her migraine headaches. While in the ED she had 2 more episodes of jerky movements of hands and legs each about 30 seconds with some frothing around the mouth but was able to manage her secretions and there was no drop in oxygen saturation no rise in pulse rate without any post ictal state. There was no tongue biting. ED provider consulted Dr. Sethi from neurology and as per his recommendations she was given zonisamide and was admitted to get evaluated for seizures vs pseudoseizure Seizure versus pseudoseizure Even after 2 episodes at home her prolactin level has been normal there has been no postictal period. Will get EEG Dr. Sethi consulted Initially started on zonisamide as per his direction but then medication was changed to Dr. Sethi to Depakote Ativan as needed for seizure Seizure precautions Anxiety We will continue home meds Plan / VTE VTE Prophylaxis Ordered?: Yes EVERARDO GARZON MD Dec 22, 2020 12:12
[2020-12-22] MEDS ORDERED: DIVALPROEX 500 MG TAB PO SCH (21:00)
[2020-12-22] MEDS ORDERED: ZONISAMIDE 50 MG CAP (ZONEGRAN) PO SCH (21:00)
[2020-12-22 22:00] VITALS: BP 109/55
[2020-12-23 01:41] VITALS: BP 132/78
[2020-12-23 06:00] VITALS: BP 118/78
[2020-12-23] MEDS: DIVALPROEX 500 MG TAB PO SCH (08:57)
[2020-12-23] MEDS ORDERED: FLUoxetine 20 MG CAP PO SCH (09:00)
[2020-12-23] MEDS ORDERED: DEPA1TAB3 PO (11:00)
--- NOTE | 2020-12-23 11:32 | CR ---
CONSULTATION DATE: 12/22/2020 REFERRING PHYSICIAN: Dr. Benja Agudelo REASON FOR CONSULTATION: Seizures. HISTORY OF PRESENT ILLNESS: Delisa Templeton is a 40-year-old woman who was seen in consultation at [facility] after she was admitted with seizures. History was obtained from patient and her who was present in the room. He woke up to the noise of her shaking due to a seizure in her sleep. It lasted for 30 seconds. She was postictal for 10 minutes. She briefly woke up and fell back asleep. He again woke up around 5:30 a.m. and she was having a second seizure lasting for 30 seconds. She was brought to [facility] and had a third seizure at 9 a.m. with generalized shaking, foaming at her mouth and postictal state. She was given zonisamide in the emergency department. She had another seizure around 10 a.m. She was given Ativan 1 mg followed by a higher does of zonisamide. She has not had any seizures since then. The patient bit her tongue in the first three episodes. She was urinary incontinent in fourth episode. She had a passing out spell in January, when she was dieting. She was on a keto diet at that time. She has history of chronic back pain. She has migraines for several years. Migraines occur once or twice a week, frontal, 8/10 in intensity, aching, throbbing in character, lasting all day with nausea, dizziness, blurred vision, photophobia and phonophobia. She denies any neck pain, dysphagia, dysarthria, diplopia, urinary incontinence. PAST MEDICAL HISTORY: 1. Kidney stones. 2. Back surgery. 3. Gastric band for weight loss. 4. Anxiety. 5. Depression. HOME MEDICATIONS: Fluoxetine. ALLERGIES: CODEINE. SOCIAL HISTORY: She denies smoking, alcohol or illicit drugs. FAMILY HISTORY: Unremarkable and noncontributory. REVIEW OF SYSTEMS: All systems were reviewed and found to be noncontributory except as mentioned in history of present illness. PHYSICAL EXAMINATION: VITAL SIGNS: Temperature 98.2, pulse 69, blood pressure 141/85, 96% saturation on room air. HEART: Regular rate and rhythm. LUNGS: Clear to auscultation. ABDOMEN: Soft, nontender, nondistended. EXTREMITIES: No pedal edema. MUSCULOSKELETAL: No abnormalities. SKIN: No rash. NEUROLOGICAL: No signs of meningeal irritation. The patient is awake, alert, oriented to place, person and time. Normal speech, comprehension and repetition. Extraocular muscles are intact. No facial weakness. Tongue and uvula are midline. 5/5 strength in all four extremities. Deep tendon reflexes are 2+ throughout. Normal sensation throughout. Gait is normal. There is no nystagmus, dysmetria or ataxia. DIAGNOSTIC STUDIES: CT scan of head was reviewed and is within normal limits. CBC, metabolic profile were normal. CK was 102. Prolactin level was 5.7 and EKG revealed normal sinus rhythm. ASSESSMENT: 1. Suspected generalized tonic-clonic seizures. 2. Syncopal episode in 2019. 3. Chronic migraines, without aura, not intractable, without status migrainosus. PLAN: 1. EEG. 2. Complete seizure precautions including no driving for six months. 3. Discontinue zonisamide due to history of kidney stones. 4. Depakote extended release 500 mg p.o. b.i.d. The patient already had hysterectomy and Depakote would not carry any risks. 5. Avoid Topamax with history of kidney stones. Keppra can be considered if any side effects with Depakote. 6. Imitrex 50 mg p.o. b.i.d. p.r.n. for migraines. 7. Follow with our office in 1-2 weeks after hospital discharge.
--- NOTE | 2020-12-23 11:40 | IPNPDOC ---
Subjective Date Seen The patient was seen on 12/23/20. Subjective Chief Complaint/HPI No complaints this morning. Objective Physical Examination General Exam: Positive: Alert, Cooperative, No Acute Distress Eye Exam: Positive: PERRLA, Conjunctiva & lids normal; Negative: Sclera icteric ENT Exam: Positive: Atraumatic, Mucous membr. moist/pink, Pharynx Normal Neck Exam: Positive: Supple; Negative: JVD, thyromegaly Chest Exam: Positive: Clear to auscultation, Normal air movement Heart Exam: Positive: Rate Normal, Regular Rhythm, Normal S1, Normal S2; Negative: Murmurs, Rubs Abdomen Exam: Positive: Normal bowel sounds, Soft; Negative: Tenderness Extremity Exam: Negative: Clubbing, Cyanosis, Edema Assessment /Plan Assessment 40-year-old female with history of migraine, anxiety, syncope worked up by cardiology in the past, morbid obesity status post lap band placement and removal, ADHD presented to the emergency room with 2 episodes of presumed seizures at home followed by severe headache which was like her migraine headaches. While in the ED she had 2 more episodes of jerky movements of hands and legs each about 30 seconds with some frothing around the mouth but was able to manage her secretions and there was no drop in oxygen saturation no rise in pulse rate without any post ictal state. There was no tongue biting. ED provider consulted Dr. Sethi from neurology and as per his recommendations she was given zonisamide and was admitted to get evaluated for seizures vs pseudoseizure Generalized tonic clonic Seizure EEG done Follow up with Dr. Sethi Initially started on zonisamide but was changed to Depakote due to history of kidney stones. Seizure precautions, No driving for 6 months, no climbing heights, no swimming alone. Anxiety We will continue home meds ADHD continue adderall. Dispo: Home. Plan/VTE VTE Prophylaxis Ordered?: Yes VS, I&O, 24H, Fishbone Vital Signs/I&O Vital Signs Date Time Temp Pulse Resp B/P (MAP) Pulse Ox O2 Delivery O2 Flow Rate FiO2 12/23/20 08:59 16 12/23/20 06:00 98.1 54 118/78 (91) 97 Room Air I&O- Last 24 Hours up to 6 AM 12/23/20 06:00 Intake Total 720 ml Output Total 1100 ml Balance -380 ml Laboratory Data 24H LABS Laboratory Tests 2 12/22/20 12:02: Coronavirus (COVID-19)(PCR) NEGATIVE, Influenza Type A (RT-PCR) NEGATIVE, Influenza Type B (RT-PCR) NEGATIVE, Respiratory Syncytial Virus (PCR) NEGATIVE EVERARDO GARZON MD Dec 23, 2020 11:40
--- NOTE | 2020-12-24 08:26 | EEG ---
ELECTROENCEPHALOGRAM DATE: 12/23/2020 DIAGNOSIS: Seizure. EEG# [id number] REFERRING PHYSICIAN: Dr. Adeola Santoyo HISTORY: The patient is a 40-year-old woman who was admitted to [facility] due to four seizures, two of which happened during sleep and two in the emergency department. They were described as generalized shaking with foaming at the mouth, loss of consciousness with postictal phase. She is currently on Depakote. TECHNICAL DESCRIPTION: This digital electroencephalogram (EEG) was recorded by 21 scalp, ear, and two electrocardiogram (EKG) electrodes and was reviewed in bipolar and referential montages following reformatting in 10-20 international electrode placement system. INTERPRETATION: Patient was noted to be in awake and drowsy states during this EEG. Resting and awake background rhythm consisted of well-formed posterior dominant rhythm with anterior/posterior gradient comprising of 9 Hz alpha activity measuring 15-40 microvolts in amplitude which was symmetric and reactive to eye opening. Attenuation of posterior dominant rhythm was seen during transition to drowsiness. Stage I and II sleep were reviewed and symmetric bilaterally. Hyperventilation was not performed. Photic stimulation remained unremarkable. EKG revealed normal sinus rhythm. No focal, lateralizing, or epileptiform abnormalities were seen. No relevant clinical activity was noted. CONCLUSION: This EEG in awake, drowsy states, stage I and II sleep is within normal limits.
== END 2020-12-23 14:00 | disposition home or self-care (01) ==
LOC: M ED 07:10 → M ED INP 13:01 → ENRESERV 14:11 → M MSPAV 16:30
PROVIDERS: ADMIT Internal Medicine Nephrology; ATTEND Internal Medicine Nephrology
DX: G40.409 Other generalized epilepsy and epileptic syndromes, not intractable, without status epilepticus (principal); F41.9 Anxiety disorder, unspecified; F90.9 Attention-deficit hyperactivity disorder, unspecified type; G43.909 Migraine, unspecified, not intractable, without status migrainosus; M54.5 Low back pain; E66.9 Obesity, unspecified; Z68.41 Body mass index [BMI] 40.0-44.9, adult; Z98.84 Bariatric surgery status; F32.9 Major depressive disorder, single episode, unspecified; R55 Syncope and collapse; Z79.899 Other long term (current) drug therapy; Z88.5 Allergy status to narcotic agent; Z87.442 Personal history of urinary calculi; Z87.891 Personal history of nicotine dependence
CPT/HCPCS: 70450; 80047; 80048; 82550; 84146; 85025; 87631; 93005; 95819; 96374; 96375; 99285; J1885; J2060; J2765

== ENCOUNTER 2022-01-26 14:00 | Emergency (ER) | payer OTHER ==
[~2022-01-26 14:00] MED LIST changes: +AMPH1CAP15 PO; +DEPA1TAB3 PO; +FLUO40CA PO; -LISI10TA15 PO; +LISI10TA24 PO; +LOSA25TA13 PO; -LOSA25TA14 PO; +SUMA50TA2 PO; +VALA1TAB5 PO
[2022-01-26 15:13] LABS: BASO % 0.1 % (0.0-1.0); EOS % 0.4 % (0.0-3.0); HEMOGLOBIN 14.6 g/dl (12.0-15.5); LYMPH # 1.2 10^3/uL (1.5-5.0); LYMPH % 13.5 % (24.0-44.0); MEAN CORPUSCULAR HGB CONC 33.2 g/dl (32.0-36.5); MEAN CORPUSCULAR VOLUME 102.6 fl (80.0-96.0); MONO # 0.4 10^3/uL (0.0-0.8); MONO % 4.1 % (2.0-8.0); NEUTROPHILS % 81.5 % (36.0-66.0); PLATELET COUNT, AUTOMATED 317 10^3/uL (150-450); RED BLOOD COUNT 4.29 10^6/uL (4.00-5.40); WHITE BLOOD COUNT 8.6 10^3/uL (4.0-10.0)
[2022-01-26] MEDS ORDERED: diphenhydrAMINE 50MG/ML VIAL (J1200) IV ONE (15:30)
[2022-01-26] MEDS ORDERED: METOCLOPRAMIDE INJ 10MG/2ML VIAL (J2765 PER 1) IV ONE (15:30)
[2022-01-26] MEDS ORDERED: KETOROLAC 30 MG/ML 1ML VIAL IV ONE (15:30)
[2022-01-26] MEDS ORDERED: NS 1,000 ML IV ONE (15:30)
[2022-01-26 16:00] LABS: BLOOD UREA NITROGEN 10 MG/DL (7-18); CALCIUM LEVEL 9.2 MG/DL (8.5-10.1); CARBON DIOXIDE LEVEL 27 MEQ/L (21-32); CHLORIDE LEVEL 107 MEQ/L (98-107); CREATININE FOR GFR 0.82 MG/DL (0.55-1.30); GLOMERULAR FILTRATION RATE > 60.0 (>58); GLUCOSE, FASTING 159 MG/DL (70-100); POTASSIUM SERUM 4.1 MEQ/L (3.5-5.1); SODIUM LEVEL 139 MEQ/L (136-145)
[2022-01-26 16:01] LABS: ACETAMINOPHEN LEVEL < 2.0 UG/ML (10.0-30.0); ALBUMIN 3.9 GM/DL (3.2-5.2); ALT/SGPT 37 U/L (12-78); BILIRUBIN,DIRECT 0.1 MG/DL (0.0-0.2); BILIRUBIN,TOTAL 0.3 MG/DL (0.2-1.0); ETHYL ALCOHOL (ETHANOL) < 0.003 % (0.000-0.010); SALICYLATE LEVEL 4.8 MG/DL (5.0-30.0); THYROID STIMULATING HORMONE 0.325 uIU/ML (0.358-3.740); TOTAL PROTEIN 7.2 GM/DL (6.4-8.2)
[2022-01-26] MEDS ORDERED: SUMAtriptan SUCCINATE 6MG/0.5ML VIAL SC ONE (16:55)
[2022-01-26] MEDS ORDERED: MAG SULF 1GM/100ML (MAG RUN) 1 GM in IV 1 EA IV ONE (16:55)
[2022-01-26 19:30] VITALS: BP 136/84
== END 2022-01-26 19:52 | disposition home or self-care (01) ==
LOC: EDBD 14:00 → M ED 14:00
DX: G43.909 Migraine, unspecified, not intractable, without status migrainosus (principal); G40.909 Epilepsy, unspecified, not intractable, without status epilepticus; F41.9 Anxiety disorder, unspecified; M54.9 Dorsalgia, unspecified; Z87.442 Personal history of urinary calculi; Z88.5 Allergy status to narcotic agent; Z79.899 Other long term (current) drug therapy; Z79.890 Hormone replacement therapy
CPT/HCPCS: 70450; 72125; 80048; 80076; 80143; 80183; 82077; 83605; 84443; 85025; 93005; 93041; 94760; 96361; 96365; 96366; 96375; 99291; J1200; J1885; J2765; J3475

== ENCOUNTER 2022-08-13 12:08 | Emergency (ER) | payer OTHER ==
[~2022-08-13] VITALS: Ht 162.6 cm; Wt 113.6 kg
[2022-08-13 13:22] VITALS: BP 179/106
[2022-08-13] MEDS ORDERED: MORPHINE 4 MG/ML 1ML VIAL IV ONE (13:40)
[2022-08-13] MEDS ORDERED: ONDANSETRON 4MG 2ML VIAL IV ONE (13:40)
[2022-08-13] MEDS ORDERED: diazePAM 10MG/2ML SYRINGE IV ONE ×2 (14:30→16:05)
[2022-08-13] MEDS ORDERED: LIDOCAINE 5% (LIDODERM) PATCH TD ONE (14:30)
[2022-08-13 14:38] LABS: BASO % 0.3 % (0.0-1.0); EOS # 0.2 10^3/uL (0.0-0.5); EOS % 3.1 % (0.0-3.0); HEMATOCRIT 42.8 % (36.0-47.0); HEMOGLOBIN 14.1 g/dl (12.0-15.5); LYMPH % 33.4 % (24.0-44.0); MEAN CORPUSCULAR HEMOGLOBIN 33.2 pg (27.0-33.0); MEAN CORPUSCULAR HGB CONC 32.9 g/dl (32.0-36.5); MEAN CORPUSCULAR VOLUME 100.7 fl (80.0-96.0); MONO # 0.6 10^3/uL (0.0-0.8); MONO % 9.4 % (2.0-8.0); NEUTROPHILS # 3.1 10^3/uL (1.5-8.5); NEUTROPHILS % 53.6 % (36.0-66.0); PLATELET COUNT, AUTOMATED 288 10^3/uL (150-450); RED BLOOD COUNT 4.25 10^6/uL (4.00-5.40); WHITE BLOOD COUNT 5.9 10^3/uL (4.0-10.0)
[2022-08-13 14:48] LABS: BLOOD UREA NITROGEN 9 MG/DL (9-23); CALCIUM LEVEL 9.1 MG/DL (8.5-10.1); CARBON DIOXIDE LEVEL 26 MMOL/L (20-31); CHLORIDE LEVEL 109 MMOL/L (98-107); CREATININE FOR GFR 0.62 MG/DL (0.55-1.30); GLOMERULAR FILTRATION RATE > 60.0 (>58); GLUCOSE, FASTING 106 MG/DL (60-100); POTASSIUM SERUM 4.4 MMOL/L (3.5-5.1); SODIUM LEVEL 140 MMOL/L (136-145)
[2022-08-13 14:50] LABS: THYROXINE (T4) 7.3 UG/DL (4.5-10.9)
[2022-08-13 14:51] LABS: FREE THYROXINE INDEX 1.6 % (1.3-4.8); T UPTAKE 21.8 % (22.5-37.0); THYROID STIMULATING HORMONE 0.923 uIU/ML (0.55-4.78)
[2022-08-13] MEDS ORDERED: AUGMENTIN 875 MG TAB PO ONE (16:30)
[2022-08-13] MEDS ORDERED: ASPE4PAD TOP (16:35)
[2022-08-13] MEDS ORDERED: AMOX875T2 PO (16:35)
[2022-08-13] MEDS ORDERED: NAPR-837 PO (16:35)
[2022-08-13] MEDS ORDERED: METH-1165 PO (16:35)
== END 2022-08-13 16:56 | disposition home or self-care (01) ==
LOC: M ED 12:08
DX: G89.29 Other chronic pain (principal); S39.012A Strain of muscle, fascia and tendon of lower back, initial encounter; W01.0XXA Fall on same level from slipping, tripping and stumbling without subsequent striking against object, initial encounter; Y92.009 Unspecified place in unspecified non-institutional (private) residence as the place of occurrence of the external cause; H66.91 Otitis media, unspecified, right ear; M51.36 Other intervertebral disc degeneration, lumbar region; M43.07 Spondylolysis, lumbosacral region; Z90.49 Acquired absence of other specified parts of digestive tract; I10 Essential (primary) hypertension; Z87.442 Personal history of urinary calculi; R51.9 Headache, unspecified; R56.9 Unspecified convulsions; Z88.5 Allergy status to narcotic agent; Z90.710 Acquired absence of both cervix and uterus; Z79.899 Other long term (current) drug therapy
CPT/HCPCS: 70450; 72128; 72131; 80048; 84436; 84443; 84479; 85025; 93005; 96374; 96375; 96376; 99284; J2270; J2405; J3360

== ENCOUNTER → 2022-08-24 | Outpatient (CLI) | payer OTHER ==
[~2022-08-24] MED LIST changes: +AMOX875T2 PO; +ASPE4PAD TOP; +METH-1165 PO; +NAPR-837 PO
== END ==
LOC: M WHC 07:30
PROVIDERS: ATTEND Registered Nurse
DX: Z12.31 Encounter for screening mammogram for malignant neoplasm of breast (principal)

== ENCOUNTER → 2023-01-07 | Outpatient (CLI) | payer OTHER | LOC: M WUC 08:34 | PROVIDERS: ATTEND Registered Nurse | DX: M79.672 Pain in left foot (principal) ==

== ENCOUNTER → 2023-08-05 | Outpatient (CLI) | payer OTHER | LOC: M WUC 09:28 | PROVIDERS: ATTEND Student in an Organized Health Care Education/Training Program | DX: M25.531 Pain in right wrist (principal) ==

== ENCOUNTER 2023-10-10 16:36 | Emergency (ER) | payer OTHER ==
[~2023-10-10] VITALS: Ht 160 cm; Wt 104.1 kg
[2023-10-10] MEDS ORDERED: BRIN10TA4 PO (16:46)
[2023-10-10 17:32] LABS: BASO % 0.4 % (0.0-1.0); EOS # 0.2 10^3/uL (0.0-0.5); EOS % 2.3 % (0.0-3.0); HEMATOCRIT 42.3 % (36.0-47.0); HEMOGLOBIN 14.3 g/dl (12.0-15.5); LYMPH # 4.2 10^3/uL (1.5-5.0); LYMPH % 39.6 % (24.0-44.0); MEAN CORPUSCULAR HEMOGLOBIN 33.6 pg (27.0-33.0); MEAN CORPUSCULAR HGB CONC 33.8 g/dl (32.0-36.5); MEAN CORPUSCULAR VOLUME 99.5 fl (80.0-96.0); MONO # 0.5 10^3/uL (0.0-0.8); MONO % 4.9 % (2.0-8.0); NEUTROPHILS # 5.5 10^3/uL (1.5-8.5); NEUTROPHILS % 52.5 % (36.0-66.0); PLATELET COUNT, AUTOMATED 332 10^3/uL (150-450); RED BLOOD COUNT 4.25 10^6/uL (4.00-5.40); WHITE BLOOD COUNT 10.5 10^3/uL (4.0-10.0)
[2023-10-10 17:49] LABS: ALBUMIN 3.6 G/DL (3.2-5.2); ALKALINE PHOSPHATASE 73 U/L (46-116); ALT/SGPT 40 U/L (7.0-40); AST/SGOT 26 U/L (<34); BILIRUBIN,DIRECT < 0.1 MG/DL (<0.4); BILIRUBIN,TOTAL < 0.2 MG/DL (0.3-1.2); BLOOD UREA NITROGEN 14 MG/DL (9-23); CALCIUM LEVEL 9.7 MG/DL (8.5-10.1); CARBON DIOXIDE LEVEL 29 MMOL/L (20-31); CHLORIDE LEVEL 108 MMOL/L (98-107); CK-MB VALUE MASS 9.1 NG/ML (<3.6); CREATININE FOR GFR 0.72 MG/DL (0.55-1.30); GLOMERULAR FILTRATION RATE > 60.0 (>58); GLUCOSE, FASTING 108 MG/DL (60-100); HCG, SERUM QUALITATIVE NEGATIVE (NEGATIVE); POTASSIUM SERUM 3.9 MMOL/L (3.5-5.1); SODIUM LEVEL 142 MMOL/L (136-145)
[2023-10-10 17:51] LABS: CPK CREATINE PHOSPHOKINASE 238 U/L (34-145); MB/CK RELATIVE INDEX 3.82 (< OR =4)
[2023-10-10 19:06] LABS: CK-MB VALUE MASS 9.8 NG/ML (<3.6)
[2023-10-10 19:08] LABS: MB/CK RELATIVE INDEX 3.84 (< OR =4)
[2023-10-10] MEDS: IPRATROPIUM 0.5MG/ALBUTEROL 2.5MG INH SOL UD 3ML (DUONEB) NEB ONE (20:43)
[2023-10-10] MEDS: ONDANSETRON 4MG ORAL DISINTEGRATING TAB PO ONE (21:05)
[2023-10-10] MEDS ORDERED: VENTAER INH (22:28)
[2023-10-10 22:35] VITALS: BP 166/98; TEMP 96.9; O2SAT 99
== END 2023-10-10 22:36 | disposition home or self-care (01) ==
LOC: M ED 16:36
DX: J06.9 Acute upper respiratory infection, unspecified (principal); R00.1 Bradycardia, unspecified; I49.49 Other premature depolarization; I10 Essential (primary) hypertension; Z88.5 Allergy status to narcotic agent; Z79.52 Long term (current) use of systemic steroids; Z79.2 Long term (current) use of antibiotics; Z79.811 Long term (current) use of aromatase inhibitors; Z79.899 Other long term (current) drug therapy

== ENCOUNTER → 2023-11-06 | Outpatient (CLI) | payer OTHER ==
[~2023-11-06] MED LIST changes: +BRIN10TA4 PO; +VENTAER INH
[2023-11-06 15:23] LABS: HEMOGLOBIN A1c 5.1 % (4.0-6.0)
[2023-11-06 15:43] LABS: CHOLESTEROL RISK RATIO 2.99 (<5); HDL CHOLESTEROL 47.7 MG/DL (>40); LDL CHOLESTEROL 78.9 MG/DL (<100); NON-HDL-C 95.3 MG/DL
[2023-11-06 15:47] LABS: THYROID STIMULATING HORMONE 0.368 uIU/ML (0.55-4.78)
[2023-11-06 15:49] LABS: FREE T4 1.04 NG/DL (0.89-1.76)
== END ==
LOC: M WUC 08:56
PROVIDERS: ATTEND Registered Nurse
DX: I10 Essential (primary) hypertension (principal); R00.2 Palpitations

== ENCOUNTER → 2024-07-15 | Outpatient (CLI) | payer OTHER ==
[~2024-07-15] MED LIST changes: -POTA10808 PO; +POTA10809 PO
== END ==
LOC: M RAD 08:41
PROVIDERS: ATTEND Orthopaedic Surgery
DX: M54.50 Low back pain, unspecified (principal); R93.7 Abnormal findings on diagnostic imaging of other parts of musculoskeletal system
CPT/HCPCS: 78306; A9503

== ENCOUNTER → 2024-11-10 | Outpatient (CLI) | payer OTHER | LOC: M RAD 12:24 | PROVIDERS: ATTEND Nurse Practitioner Family | DX: R10.9 Unspecified abdominal pain (principal); N20.0 Calculus of kidney ==

== ENCOUNTER → 2025-01-07 | Outpatient (CLI) | payer OTHER ==
[~2025-01-07] MED LIST changes: +LAMO100T3
== END ==
LOC: M WHC 09:49
PROVIDERS: ATTEND Registered Nurse
DX: Z12.31 Encounter for screening mammogram for malignant neoplasm of breast (principal)